=== PATIENT | male | born 1975 | race Caucasian/White ===

== ENCOUNTER → 2024-08-07 07:10 | Outpatient (REF) | payer OTHER, SELFPAY | LOC: HWRAD 07:10 | PROVIDERS: ATTENDING PHYSICIAN Family Medicine | DX: Z15.09 Genetic susceptibility to other malignant neoplasm (principal) | CPT/HCPCS: 76700 ==

== ENCOUNTER → 2024-08-16 09:55 | Outpatient (REF) | payer OTHER, SELFPAY | LOC: WDC 09:55 | PROVIDERS: ATTENDING PHYSICIAN Family Medicine | DX: Z12.31 Encounter for screening mammogram for malignant neoplasm of breast (principal); Z15.01 Genetic susceptibility to malignant neoplasm of breast | CPT/HCPCS: 77063; 77067 ==